=== PATIENT | female | born 2000 | race Caucasian/White ===

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

== ENCOUNTER 2021-06-13 18:29 | Emergency (ER) | payer OTHER ==
[~2021-06-13] VITALS: Ht 162.6 cm; Wt 75.0 kg
[2021-06-13 19:11] LABS: COLLECTION METHOD CLEAN CATCH
[2021-06-13 19:19] LABS: MUCOUS Present /lpf; PH 6 (5-8); URINE APPEARANCE Clear; URINE BACTERIA Rare /hpf; URINE BILIRUBIN Negative (NEGATIVE); URINE BLOOD Negative (NEGATIVE); URINE COLOR Straw; URINE GLUCOSE Negative (NEGATIVE); URINE KETONE Negative (NEGATIVE); URINE LEUKOCYTE ESTERASE Negative (NEGATIVE); URINE NITRATE Negative (NEGATIVE); URINE PROTEIN(semi-quant) Negative (NEGATIVE); URINE RBC 0-2 /hpf; URINE UROBILINOGEN Negative (NEGATIVE)
[2021-06-13] MEDS ORDERED: DIFLUCAN150 MG PO (19:49)
[2021-06-13 20:11] VITALS: BP 121/85; PULSE 64; TEMP 98.5
[2021-06-14] MEDS ORDERED: NAPROSYN500 MG PO (17:01)
[2021-06-14] MEDS ORDERED: FLEXERIL 1010 MG/TAB PO (17:01)
== END 2021-06-13 20:14 | disposition home or self-care (01) ==
LOC: COL.ER 18:29
PROVIDERS: Physician Assistant
DX: R39.15 Urgency of urination (principal); R35.0 Frequency of micturition; F17.200 Nicotine dependence, unspecified, uncomplicated; Z87.448 Personal history of other diseases of urinary system; Z32.02 Encounter for pregnancy test, result negative

== ENCOUNTER 2021-06-14 14:10 | Emergency (ER) | payer OTHER ==
[~2021-06-14] VITALS: Ht 162.6 cm; Wt 75.0 kg
[~2021-06-14 14:10] MED LIST: DIFLUCAN150 MG PO
[2021-06-14 14:56] VITALS: TEMP 98.1
[2021-06-14 15:44] LABS: COLLECTION METHOD CLEAN CATCH
[2021-06-14 15:58] LABS: MUCOUS Present /lpf; PH 5 (5-8); URINE APPEARANCE Clear; URINE BACTERIA Rare /hpf; URINE BILIRUBIN Negative (NEGATIVE); URINE BLOOD Negative (NEGATIVE); URINE COLOR Yellow; URINE GLUCOSE Negative (NEGATIVE); URINE KETONE Negative (NEGATIVE); URINE LEUKOCYTE ESTERASE Negative (NEGATIVE); URINE NITRATE Negative (NEGATIVE); URINE PROTEIN(semi-quant) Negative (NEGATIVE); URINE RBC 0-2 /hpf; URINE UROBILINOGEN Negative (NEGATIVE)
[2021-06-14] MEDS ORDERED: FLEXERIL 1010 MG/TAB PO (17:01)
[2021-06-14] MEDS ORDERED: NAPROSYN500 MG PO (17:01)
[2021-06-14 17:35] VITALS: BP 122/61; PULSE 80
== END 2021-06-14 17:40 | disposition home or self-care (01) ==
LOC: COL.ER 14:10
PROVIDERS: Nurse Practitioner Primary Care
DX: S29.012A Strain of muscle and tendon of back wall of thorax, initial encounter (principal); R39.15 Urgency of urination; R35.0 Frequency of micturition; X50.0XXA Overexertion from strenuous movement or load, initial encounter

== ENCOUNTER 2021-06-23 20:17 | Emergency (ER) | payer OTHER ==
[~2021-06-23] VITALS: Ht 162.6 cm; Wt 75.0 kg
[~2021-06-23 20:17] MED LIST changes: +FLEXERIL 1010 MG/TAB PO; +NAPROSYN500 MG PO
[2021-06-23 20:28] VITALS: TEMP 97.2
[2021-06-23 22:44] VITALS: BP 110/72; PULSE 86
== END 2021-06-23 22:44 | disposition home or self-care (01) ==
LOC: COL.ER 20:17
DX: N89.8 Other specified noninflammatory disorders of vagina (principal); Z88.0 Allergy status to penicillin; Z88.1 Allergy status to other antibiotic agents

== ENCOUNTER 2021-07-20 17:36 | Emergency (ER) | payer OTHER | END 2021-07-20 18:24 | disposition left against medical advice (07) | LOC: COL.ER 17:36 | DX: R52 Pain, unspecified (principal) ==

== ENCOUNTER 2021-07-22 11:54 | Emergency (ER) | payer OTHER ==
[~2021-07-22] VITALS: Ht 162.6 cm; Wt 72.7 kg
[2021-07-22 11:59] VITALS: BP 123/74; TEMP 98.3
[2021-07-22 13:53] VITALS: PULSE 70
== END 2021-07-22 13:53 | disposition home or self-care (01) ==
LOC: COL.ER 11:54
DX: F45.21 Hypochondriasis (principal)

== ENCOUNTER 2021-09-08 11:22 | Emergency (ER) | payer OTHER ==
[~2021-09-08] VITALS: Ht 162.6 cm; Wt 75.0 kg
[2021-09-08 14:03] LABS: COLLECTION METHOD CLEAN CATCH
[2021-09-08 14:06] LABS: BASO % 0.4 % (0.0-2.0); EOS % 0.2 % (0-4.0); GRAN # 5.8 K/mm3 (1.4-6.5); GRAN % 68.4 % (42.2-75.2); HEMOGLOBIN 13.4 g/dl (12.0-15.0); LYMPH % 24.1 % (20.0-51.0); MEAN CELL VOLUME 84 fl (80.0-95.0); MEAN CORPUSCULAR HEMOGLOBIN 29 pg (26.0-32.0); MEAN CORPUSCULAR HGB CONC 34 g/dl (33.0-37.0); MEAN PLATELET VOLUME 10.7 fl (7.4-10.4); MONO # 0.6 K/mm3 (0.1-0.6); MONO % 6.7 % (1.7-9.3); PLATELET COUNT 283 K/mm3 (130-400); RED BLOOD COUNT 4.63 M/mm3 (4.10-5.30); REDCELL DISTRIBUTION WIDTH-CV 11.8 % (11.5-14.5)
[2021-09-08 14:14] LABS: MUCOUS Present (NOT PRESENT); PH 7 (5-8); SQUAMOUS EPITHELIAL 0-2 /hpf (0-10); URINE APPEARANCE Hazy (CLEAR/HAZY); URINE BACTERIA Rare (NONE SEEN); URINE BILIRUBIN Negative (NEGATIVE); URINE BLOOD Negative (NEGATIVE); URINE COLOR Yellow (YELLOW); URINE GLUCOSE Negative (NEGATIVE); URINE KETONE Negative (NEGATIVE); URINE LEUKOCYTE ESTERASE Negative (NEGATIVE); URINE NITRATE Negative (NEGATIVE); URINE PROTEIN(semi-quant) Negative (NEGATIVE); URINE RBC 0-2 /hpf (0-2); URINE UROBILINOGEN Negative (NEGATIVE)
[2021-09-08 14:23] LABS: ALBUMIN 3.9 gm/dL (3.5-5.0); BILIRUBIN,TOTAL 0.5 mg/dL (0.2-1.2); CALCIUM 9.6 mg/dL (8.4-10.2); CREATININE, serum 0.7 mg/dL (0.57-1.11); POTASSIUM 3.8 mmol/L (3.5-4.5); TOTAL PROTEIN 6.9 gm/dL (6.2-8.1)
[2021-09-08 16:50] VITALS: BP 110/60; PULSE 78; TEMP 97.7
== END 2021-09-08 16:51 | disposition home or self-care (01) ==
LOC: COL.ER 11:22
PROVIDERS: Physician Assistant
DX: O20.0 Threatened abortion (principal); Z3A.08 8 weeks gestation of pregnancy
CPT/HCPCS: J7030